=== PATIENT | male | born 1945 | race Hispanic/Latino ===

== ENCOUNTER 2021-01-26 19:16 | Observation (INO) | payer MEDICARE ==
[2021-01-26 20:03] LABS: #Lymphocytes 0.6 thou/uL (1.20-3.40); #Monocytes 0.3 thou/uL (0.11-0.59); %Basophils 0.3 % (0.0-1.0); %Eosinophils 0.2 % (0.0-10.0); %Lymphocytes 7.4 % (21.0-51.0); %Monocytes 3.5 % (0.0-10.0); %Neutrophils 88.6 % (42.0-75.0); Hemoglobin 15.6 g/dL (14.0-18.0); Mean Corpuscular HGB CONC 34.9 g/dL (32.0-36.0); Mean Corpuscular Hemoglobin 32.2 pg (27.0-31.0); Mean Corpuscular Volume 92.3 fL (78.0-98.0); Mean Platelet Volume 6.9 fL (7.4-10.4); Platelet Count 248 thou/uL (130-400); RBC Distribution Width 11.4 % (11.5-14.5); Red Blood Cell (RBC) Count 4.83 mill/uL (4.70-6.10); White Blood Cell (WBC) Count 7.9 thou/uL (4.8-10.8)
[2021-01-26 20:26] LABS: ALT (SGPT) 38 U/L (8-55); AST (SGOT) 32 U/L (5-34); Alkaline Phosphatase 85 U/L (40-110); Anion Gap 17 mmol/L (10-20); BUN (Urea Nitrogen) 10 mg/dL (8.4-25.7); Bilirubin, Total 0.7 mg/dL (0.2-1.2); Calc. Creatinine Clearance 0 mL/min (70-130); Calcium 9.6 mg/dL (7.8-10.44); Carbon Dioxide 20 mmol/L (23-31); Chloride 101 mmol/L (98-107); Globulin 3.3 g/dL (2.4-3.5); Glucose 202 mg/dL (83-110); Potassium 3.7 mmol/L (3.5-5.1); Protein, Total 7.3 g/dL (5.8-8.1); Sodium 134 mmol/L (136-145)
[2021-01-26 20:48] LABS: Bacteria/HPF None Seen HPF (None Seen); Bilirubin Negative (Negative); Blood, Urine 1+ (Negative); Clarity Clear (Clear); Glucose, Urine (Dipstick) 100 mg/dL (Negative); Ketone, Urine Negative (Negative); Leukocyte 25 Leu/uL (Negative); Nitrite Negative (Negative); Protein, Urine (Dipstick) 20 mg/dL (Neg-Trace); RBC/HPF 0-3 HPF (0-3); Specific Gravity, Urine 1.011 (1.002-1.036); Squamous Epithelial 0-3 HPF (0-3); Urobilinogen Normal mg/dL (Less than 2); WBC/HPF 0-3 HPF (0-3); pH, Urine 5.5 (5.0-9.0)
[2021-01-26] MEDS ORDERED: Morphine 4 MG/ML VIAL ONE (21:00)
[2021-01-26] MEDS ORDERED: HYDROcodone/Acetaminophen 5/325 mg Tablet PO PRN (23:13)
[2021-01-26] MEDS ORDERED: Ondansetron PF 4 MG/2 ML Vial IVP PRN (23:13)
[2021-01-26] MEDS ORDERED: HumaLOG 300 UNITS/3 ML VIAL SC PRN (23:13)
[2021-01-26] MEDS ORDERED: Dextrose 50% Abboject 50 ML SYRINGE SLOW IVP PRN (23:13)
[2021-01-26] MEDS ORDERED: Acetaminophen 325 MG TAB PO PRN (23:13)
[2021-01-26] MEDS ORDERED: Dextrose 5% in Water 1,000 ML IV PRN (23:13)
[2021-01-26] MEDS ORDERED: hydrALAZINE 20 MG/ML VIAL SLOW IVP PRN (23:16)
[2021-01-26 23:47] VITALS: BMI 32.8
[2021-01-27] MEDS ORDERED: Cyclobenzaprine 10 MG TAB PO PRN (07:01)
[2021-01-27 07:32] LABS: Hemoglobin 14.5 g/dL (14.0-18.0); Mean Corpuscular HGB CONC 33.6 g/dL (32.0-36.0); Mean Corpuscular Hemoglobin 31.4 pg (27.0-31.0); Mean Corpuscular Volume 93.5 fL (78.0-98.0); Platelet Count 246 thou/uL (130-400); RBC Distribution Width 11.5 % (11.5-14.5); Red Blood Cell (RBC) Count 4.63 mill/uL (4.70-6.10); White Blood Cell (WBC) Count 7.3 thou/uL (4.8-10.8)
[2021-01-27 07:50] LABS: Band 9 % (5-11); Lymphocytes 19 % (21-51); MDiff Complete? YES; Monocytes 3 % (0-10); Neutrophil 62 % (42-75); RBC Morphology Normal; Reactive Lymphocytes 7 % (0-10)
[2021-01-27 07:56] LABS: ALT (SGPT) 37 U/L (8-55); AST (SGOT) 42 U/L (5-34); Albumin 3.7 g/dL (3.4-4.8); Alkaline Phosphatase 77 U/L (40-110); Anion Gap 13 mmol/L (10-20); BUN (Urea Nitrogen) 8 mg/dL (8.4-25.7); Bilirubin, Total 0.7 mg/dL (0.2-1.2); Calc. Creatinine Clearance 114 mL/min (70-130); Calcium 9.2 mg/dL (7.8-10.44); Carbon Dioxide 24 mmol/L (23-31); Chloride 103 mmol/L (98-107); Globulin 3.1 g/dL (2.4-3.5); Glucose 122 mg/dL (83-110); Potassium 3.5 mmol/L (3.5-5.1); Protein, Total 6.8 g/dL (5.8-8.1); Sodium 136 mmol/L (136-145)
[2021-01-27] MEDS: metFORMIN 500 MG TAB PO SCH ×2 (09:22→18:09)
[2021-01-27] MEDS: Lisinopril 10 MG TAB PO SCH (09:22)
[2021-01-27] MEDS: Famotidine 20 MG TAB PO SCH ×2 (09:22→20:08)
[2021-01-27] MEDS: Enoxaparin Sodium 30 MG/0.3 ML SYRINGE SC SCH (09:22)
[2021-01-27] MEDS ORDERED: Finasteride 5 MG TAB PO SCH (21:00)
[2021-01-27] MEDS ORDERED: Atorvastatin Calcium 10 MG TAB PO SCH (21:00)
[2021-01-27] MEDS ORDERED: Tamsulosin HCl 0.4 MG CAP PO SCH (21:00)
[2021-01-28 01:15] LABS: SARS-CoV-2 PCR by NAA Not Detected (NotDetected)
[2021-01-28] MEDS: Famotidine 20 MG TAB PO SCH (09:06)
[2021-01-28] MEDS: metFORMIN 500 MG TAB PO SCH ×2 (09:06→17:30)
[2021-01-28] MEDS: Enoxaparin Sodium 30 MG/0.3 ML SYRINGE SC SCH (09:07)
[2021-01-28] MEDS: Lisinopril 10 MG TAB PO SCH (09:07)
[2021-01-28 12:48] VITALS: TEMP 98
[2021-01-28 17:10] VITALS: BP 138/68
== END 2021-01-28 17:47 | disposition home or self-care (01) ==
LOC: ERS 19:16 → ONC 22:41
PROVIDERS: ADMIT Internal Medicine; ATTEND Internal Medicine
DX: R53.1 Weakness (principal); I10 Essential (primary) hypertension; E11.9 Type 2 diabetes mellitus without complications; N40.0 Benign prostatic hyperplasia without lower urinary tract symptoms; M25.78 Osteophyte, vertebrae; M41.86 Other forms of scoliosis, lumbar region; M48.061 Spinal stenosis, lumbar region without neurogenic claudication; M51.26 Other intervertebral disc displacement, lumbar region; J34.1 Cyst and mucocele of nose and nasal sinus; R22.0 Localized swelling, mass and lump, head; I70.0 Atherosclerosis of aorta; I70.8 Atherosclerosis of other arteries; Z79.84 Long term (current) use of oral hypoglycemic drugs; Z79.899 Other long term (current) drug therapy; Z20.822 Contact with and (suspected) exposure to COVID-19
CPT/HCPCS: 70450; 72128; 72131; 72148; 72192; 80053 ×2; 82962 ×2; 85007; 85025; 85027; 93005; 96372 ×2; 96374; 97116; 97139 ×5; 99285; G0378 ×4; U0003; U0005; 36415; 36416; 81003; 81015; 87635; J1650; J1815; J2270

== ENCOUNTER 2022-11-15 11:37 | Outpatient (CLI) | payer MEDICARE | END 2022-11-15 11:38 | disposition home or self-care (01) | LOC: BICRAD 11:37 | PROVIDERS: ATTEND Physician Assistant Medical | DX: D49.0 Neoplasm of unspecified behavior of digestive system (principal); N50.812 Left testicular pain | CPT/HCPCS: 71046 ==